=== PATIENT | female | born 1955 ===

== ENCOUNTER 2020-03-10 12:46 | Emergency (ER) | payer OTHER ==
[~2020-03-10] VITALS: Ht 152.4 cm; Wt 79.4 kg
== END 2020-03-10 15:29 | disposition home or self-care (01) ==
LOC: ER 12:46
DX: S52.042A Displaced fracture of coronoid process of left ulna, initial encounter for closed fracture (principal); S80.01XA Contusion of right knee, initial encounter; W18.09XA Striking against other object with subsequent fall, initial encounter; Y93.89 Activity, other specified; Y92.018 Other place in single-family (private) house as the place of occurrence of the external cause; Y99.8 Other external cause status

== ENCOUNTER 2021-11-14 09:54 | Emergency (ER) | payer OTHER ==
[~2021-11-14] VITALS: Ht 152.4 cm; Wt 83.9 kg
[2021-11-14] MEDS ORDERED: METRONIDAZOLE500 MG PO (18:32)
[2021-11-14] MEDS ORDERED: PEPCID AC20 MG PO (18:32)
== END 2021-11-14 18:55 | disposition home or self-care (01) ==
LOC: ER 09:54
DX: K57.90 Diverticulosis of intestine, part unspecified, without perforation or abscess without bleeding (principal); K52.9 Noninfective gastroenteritis and colitis, unspecified; R10.84 Generalized abdominal pain; Z20.822 Contact with and (suspected) exposure to COVID-19